=== PATIENT | male | born 1980 | race African-American/Black ===

== ENCOUNTER 2021-10-12 16:10 | Emergency (ER) | payer SELFPAY ==
[2021-10-12 16:21] VITALS: BP 125/83; PULSE 63; TEMP 98.4; BMI 25.0
== END 2021-10-12 17:21 | disposition home or self-care (01) ==
LOC: JERFT 16:10 → JER 16:10 → JERFT 17:21
DX: M79.642 Pain in left hand (principal)
CPT/HCPCS: 73130-TC-LT-FY; 99283-25